=== PATIENT | male | born 1950 | race Two or more races ===

== ENCOUNTER 2021-12-15 19:49 | Emergency (ER) | payer MEDICARE, OTHER ==
[~2021-12-15] VITALS: Ht 165.1 cm; Wt 95.3 kg
[2021-12-15] MEDS ORDERED: MORPHINE SULFATE INJ 2 MG/ML DISP.SYRIN IM ONE (20:30)
[2021-12-15] MEDS ORDERED: predniSONE 50 MG TABLET PO ONE (20:30)
[2021-12-15] MEDS ORDERED: IBUPROFEN 600 MG TABLET PO ONE (20:30)
--- NOTE | 2021-12-15 20:30 | NUR ---
BIBS A/O X3, C/O LOWER LEFT BACK PAIN "SHOOTING DOWN LEFT LEG" PT AWAITING TO BE SEEN BY
[2021-12-15] MEDS ORDERED: IBUPROFEN 600 MG TABLET ONE (20:37)
[2021-12-15] MEDS ORDERED: predniSONE 20 MG TABLET ONE (20:39)
[2021-12-15] MEDS ORDERED: MORPHINE SULFATE INJ 2 MG/ML DISP.SYRIN ONE (20:41)
--- NOTE | 2021-12-15 21:45 | NUR ---
URINE COLLECTED AND SENT TO LAB
[2021-12-15 22:11] LABS: BASOPHILS # (AUTO) 0.1 K/uL (0.0-0.2); BASOPHILS % (AUTO) 0.8 % (0.0-2.0); EOSINOPHILS % (AUTO) 0.4 % (0.0-6.0); HEMATOCRIT 42 % (39-51); HEMOGLOBIN 13.9 g/dL (13.5-17.5); LYMPHOCYTES # (AUTO) 2.1 K/uL (0.8-4.8); LYMPHOCYTES % (AUTO) 21.8 % (20.0-44.0); MEAN CORPUSCULAR HGB CONC 33 g/dl (31.0-36.0); MEAN CORPUSCULAR VOLUME 98 fL (80-96); MONOCYTES # (AUTO) 0.6 K/uL (0.1-1.30); MONOCYTES % (AUTO) 6.5 % (2.0-12.0); NEUTROPHILS # (AUTO) 6.7 K/uL (1.8-8.9); NEUTROPHILS % (AUTO) 70.5 % (43.0-81.0); PLATELET COUNT (AUTO) 218 K/uL (150-450); RED BLOOD CELL COUNT(AUTO) 4.28 MIL/uL (4.5-6.0); WHITE BLOOD COUNT (AUTO) 9.5 K/uL (4.3-11.0)
[2021-12-15 22:27] LABS: CALCIUM, SERUM 9.8 mg/dL (8.5-10.1); CARBON DIOXIDE 24 mmol/L (21-32); CHLORIDE 100 mmol/L (98-107); CREATININE 1.6 mg/dL (0.6-1.3); GLUCOSE 303 mg/dL (74-106); POTASSIUM 4.8 mmol/L (3.5-5.1); SODIUM SERUM 134 mmol/L (136-145); UREA NITROGEN, BLOOD 28 mg/dL (7-18)
[2021-12-15] MEDS ORDERED: CYCL10TA9 PO (22:27)
[2021-12-15] MEDS ORDERED: TRAM50TA2 PO (22:27)
[2021-12-15] MEDS ORDERED: HYDROMORPHONE 1 MG/1 ML DISP.SYRIN IV ONE (22:30)
[2021-12-15 22:31] LABS: BILIRUBIN,URINE SMALL (NEGATIVE); COLOR,URINE YELLOW (YELLOW); LEUKOCYTE ESTERASE ,URINE NEGATIVE (NEGATIVE); NITRITE, URINE NEGATIVE (NEGATIVE); PH,URINE 5.5 (5.0-8.0); PROTEIN,URINE 30 mg/dl (NEGATIVE); UGLUCOSE 250 MG/DL mg/dL (NEGATIVE)
[2021-12-15 23:37] VITALS: BP 109/72
== END 2021-12-15 23:37 | disposition home or self-care (01) ==
LOC: ER 20:04
DX: M54.50 Low back pain, unspecified (principal); E11.9 Type 2 diabetes mellitus without complications
CPT/HCPCS: 36415; 72100; 74176; 80048; 81003; 85025; 96372; 99285; J2270; J7512